=== PATIENT | female | born 2000 | race Caucasian/White ===

== ENCOUNTER 2018-06-16 04:14 | Observation (INO) ==
--- NOTE | 2018-06-16 04:45 | PROVIDER DOCUMENTATION ---
HPI-Female /OB/Breast - General Chief Complaint: Flank Pain Stated Complaint: FLANK PAIN Time Seen by Provider: 06/16/18 04:45 Source: reports: patient Allergies/Adverse Reactions: Patient Allergies Allergy/AdvReac Type Severity Reaction Status Date / Time No Known Allergies Allergy Verified 06/16/18 04:43 Home Medications: Home Medication List Medication Instructions Recorded Confirmed Last Taken Type NK [No Home Medications] 06/16/18 06/16/18 Unknown History - History of Present Illness-Female /OB Nature of Presenting Problem: Patient is a 17 year old white female with history of nephrolithiasis, S/P replacement of obstructed right ureteral stent in [place], [place] 2 days ago who presents with worsening 6/10 sharp right flank and right abdomen pain for past 2 days. Patient also noted to have fever of 101.7 at 0330 today. Patient is currently traveling to [facility] , with her 4 month old baby and her . Location of complaint: reports: right flank, other (right abdomen) Radiation: reports: none Quality of Pain: reports: sharp Onset/Duration: reports: gradual, 2 days ago Timing: reports: still present Vaginal Bleeding Amount: None Leakage of Fluid: none Associated Symptoms: reports: fever/chills. denies: constipation, diarrhea Similar Symptoms Previously?: Yes Recently seen or treated by another doctor?: Yes (urologist in [place], [place] on 06/13/18) Review of Systems - Adult - REVIEW OF SYSTEMS - ADULT Constitutional: reports: chills, fever Eyes: reports: no symptoms reported Ears, Nose, Mouth & Throat: reports: no symptoms reported Cardiovascular: reports: no symptoms reported Respiratory: reports: no symptoms reported. denies: cough, shortness of breath Gastrointestinal: reports: see HPI, abdominal pain, nausea Genitourinary: reports: see HPI, flank pain (right), hematuria. denies: dysuria Musculoskeletal: reports: back pain Integumentary: reports: no symptoms reported Neurological: reports: no symptoms reported Psychiatric: reports: no symptoms reported Endocrine: reports: no symptoms reported Hematologic/Lymphatic: reports: no symptoms reported Past History - Adult - PAST MEDICAL HISTORY-ADULT Review of Records: reports: Old Records Reviewed, Nursing Assessment Review, Medications Reviewed, Social history reviewed & non-contributory. Major Childhood Illnesses: reports: denies history Cardiovascular: reports: denies history Respiratory: reports: denies history Gastrointestinal: reports: denies history Obstetrical/Gynecological: reports: other (, 4 months ago) Genitourinary: reports: kidney stones Musculoskeletal: reports: denies history Neurological: reports: denies history Psychiatric: reports: denies history Endocrine/Immune: reports: denies history - PRIOR SURGERIES/PROCEDURES Surgical/Procedure History: reports: other (right ureteral stents) - FAMILY HISTORY Family History: reviewed, not pertinent Physical Exam-General - PHYSICAL EXAM-ADULT Initial Vital Signs Reviewed: Yes - CONSTITUTIONAL General Appearance: alert, no apparent distress, other (moderate discomfort) - EYES Eyes: pink conjunctivae - HEAD, EARS, NOSE, MOUTH & THROAT HENMT: normocephalic/atraumatic - NECK Neck: full range of motion, supple - RESPIRATORY Respiratory: lungs clear - CARDIOVASCULAR Cardiovascular: regular rate, rhythm - GASTROINTESTINAL (ABDOMEN) Abdominal Exam: normal bowel sounds, soft, no organomegaly, no pulsatile mass, other (right sided tenderness) - LYMPHATIC Lymphatic: no adenopathy - MUSCULOSKELETAL Back Exam: normal inspection, CVA tenderness (right CVA tenderness) Extremity: normal range of motion, non-tender Peripheral Pulses: radial (R): 2+, radial (L): 2+ - SKIN Integumentary: normal color, normal turgor - NEUROLOGIC Neurologic: grossly normal - PSYCHIATRIC Psych/Mental Status: normal thought content, normal thought process, oriented x 3, anxious Progress - PLAN OF CARE/RESULTS Progress/Plan/Lab Results: Vital Signs - 8 hr 06/16/18 04:37 06/16/18 10:14 06/16/18 11:04 Temperature 98.9 F 97.5 F L 99.3 F Pulse Rate 101 H 58 L Respiratory Rate 18 18 Blood Pressure 121/62 118/93 O2 Sat by Pulse Oximetry 97 99 Bedside Urine ED: Urine Bedside Start: 06/16/18 04:46 Freq: ORDERED Status: Active Protocol: Activity Type Activity Date Activity User E-Sign Co-Sign Detail Recorded Client Recorded Date Recorded By Document 06/16/18 04:54 [id number] 06/16/18 04:54 [id number] 06/16/18 04:54 Point of Care [Bedside Point of Care] -Lot # [id number] - Results Negative -Control Line Visible? Yes Laboratory Results - last 24 hr 06/16/18 06/16/18 06/16/18 04:57 06:00 06:00 WBC 13.24 H RBC 4.23 Hgb 11.4 L Hct 34.3 L MCV 81.1 MCH 27.0 MCHC 33.2 RDW Std Deviation 12.6 Plt Count 338 MPV 9.2 Immature Gran % (Auto) 0.2 Neut % (Auto) 81.3 H Lymph % (Auto) 8.4 L Rawlins % (Auto) 9.4 H Eos % (Auto) 0.5 Baso % (Auto) 0.2 Immature Gran # (Auto) 0.02 Neut # (Auto) 10.78 H Lymph # (Auto) 1.11 L Rawlins # (Auto) 1.25 H Eos # (Auto) 0.06 Baso # (Auto) 0.02 Sodium 139 Potassium 3.8 Chloride 105 Carbon Dioxide 22 L Anion Gap 12 BUN 8 Creatinine 0.5 Estimated GFR/1.73 m2 > 60 BUN/Creatinine Ratio 16 Glucose 118 H Calculated Osmolality 277 Calcium 8.9 Total Bilirubin 0.50 AST 12 ALT 12 Alkaline Phosphatase 76 Total Protein 7.2 Albumin 3.7 Globulin 4.0 Albumin/Globulin Ratio 1.0 Urine Source CLEAN CATCH Urine Color YELLOW Urine Clarity CLEAR Urine pH 7.0 Ur Specific [place]cott 1.000 Urine Protein 1+(30 mg/dL) A Urine Ketones NEGATIVE Urine Blood 4+ Urine Nitrite NEGATIVE Urine Bilirubin NEGATIVE Urine Urobilinogen NORMAL Urine Microscopic RBC 10-20 A Urine WBC 2+ A Urine Microscopic WBC 20-40 A Ur Epithelial Cells <10 Urine Bacteria 1+ Urine Glucose NEGATIVE Orders Category Date Time Status Saline Loc NOW Care 06/16/18 05:40 Active [ED: Urine Bedside] ORDERED Care 06/16/18 04:[address] RENAL STONE SEARCH [CT] Stat Exams 06/16/18 06:35 Completed BLOOD CULTURE [BLDCUL] Stat Lab 06/16/18 06:53 Ordered CBC WITH ELECTRONIC DIFF [HEME] Stat Lab 06/16/18 06:00 Completed CMP [COMPREHENSIVE METABOLIC PANEL] [CHEM] Stat Lab 06/16/18 06:[address] W/POSS RFLX CULT [URINALYSIS] Stat Lab 06/16/18 04:57 Completed URINE CULTURE [RM] Routine Lab 06/16/18 07:26 Ordered CefTRIAXONE [Rocephin] 1 gm Med 06/16/18 06:37 Discontinued 0.9% Sodium Chloride Inj [Ns] 50 ml IV NOW Ketorolac [Toradol] Med 06/16/18 05:40 Discontinued 30 mg IV NOW ONE Transfer/Admit Order [TRANSFER] Routine Transfer 06/16/18 11:07 Ordered Result Diagrams: 06/16/18 06:00 06/16/18 06:00 - CONSULTS/PCP/HOSPITALIST Notification #1 *Consult/PCP/Hospitalist*: Dr López Time Discussed: 09:30 Consult Disposition: other (please ask patient where she would like the procedure performed, at [facility] or in [place]) #2 Consult: Dr López Time Discussed: 09:45 Consult Disposition: other (Please contact hospitalist for patient transfer) #3 Consult: Dr López Reason/Comments: 10:22 Consult Disposition: other (Waiting for patient transfer) - CHANGE OF SHIFT REPORT (ED Provider) Report Given and Care Transferred to:: Dr. Berger Time of Transfer: 07:00 Items Pending: CT/MRI Results (CT of abdomen/pelvis pending) Departure - Departure Date of Disposition Decision: 06/16/18 Time of Disposition Decision: 11:12 DIAGNOSIS: Right flank pain Disposition: ADMITTED INPATIENT 09 Certified Medical Emergency: Emergent Condition: Stable Referrals and Follow-Ups: None,PCP [Primary Care Provider] - - Critical Care Note This patient required my direct & personal management of CC.: No Attestation - Physician/ CARIN Attestation Patient care was provided by Advanced Practice Provider:: No The physician spent face to face time with patient:: Yes Advanced Practice Provider documentation review:: Supervising physician onsite and consulted in the evaluation and care of this patient. The physician did have a face to face encounter with the patient.
[2018-06-16] MEDS ORDERED: TORADOL IV ONE (05:40)
[2018-06-16 06:09] LABS: BASO# 0.02 X1000 (0.0-0.2); BASO% 0.2 % (0.0-0.8); EOS# 0.06 X1000 (0.0-0.7); EOS% 0.5 % (0.0-10.0); HEMATOCRIT 34.3 % (37.0-47.0); HEMOGLOBIN 11.4 g/dL (12.0-16.0); IMM GRAN# 0.02 X1000 (0.0-0.04); IMM GRAN% 0.2 % (0.0-0.5); LYMPH# 1.11 X1000 (1.2-3.4); LYMPH% 8.4 % (20.5-51.1); MCHC 33.2 g/dL (33-37); MCV 81.1 FL (81-99); MONO# 1.25 X1000 (0.11-0.59); MONO% 9.4 % (1.7-9.3); MPV 9.2 FL (7.4-10.4); NEUT# 10.78 X1000 (1.4-6.5); NEUT% 81.3 % (42.2-75.2); PLT 338 X1000 (130-400); RBC 4.23 XMIL (4.2-5.4); RDW 12.6 % (11.5-14.5); WBC 13.24 X1000 (4.8-10.8)
[2018-06-16] MEDS ORDERED: ROCEPHIN 1 GM in NS 50 ML IV ONE (06:37)
[2018-06-16 06:43] LABS: BILIRUBIN URINE NEGATIVE (NEGATIVE); BLOOD URINE 4+ (NEGATIVE); CLARITY CLEAR (CLEAR); COLOR YELLOW; GLUCOSE URINE NEGATIVE (NEGATIVE); KETONE URINE NEGATIVE (NEGATIVE); LEUKOCYTES URINE 2+ (NEGATIVE); NITRITE URINE NEGATIVE (NEGATIVE); PROTEIN URINE 1+(30 mg/dL) mg/dL (NEGATIVE); UROBILINOGEN URINE NORMAL
[2018-06-16 06:48] LABS: AGAP 12; ALBUMIN 3.7 g/dL (3.5-5.0); ALKALINE PHOSPHATASE 76 U/L (32-104); BUN 8 mg/dL (8-22); CALCIUM 8.9 mg/dL (8.8-10.2); CHLORIDE 105 mmol/L (98-107); COSMO 277; CREATININE 0.5 mg/dL (0.5-0.9); ESTIMATED GFR > 60; GLUCOSE 118 mg/dL (70-104); GOT 12 U/L (10-30); GPT 12 U/L (10-36); POTASSIUM 3.8 mmol/L (3.5-5.1); SODIUM 139 mmol/L (136-145); TCO2 22 mmol/L (25-35); TOTAL PROTEIN 7.2 g/dL (6.3-8.3)
[2018-06-16 07:23] LABS: URINE WBC 20-40 /HPF (<10)
[2018-06-16 07:24] LABS: URINE BACTERIA 1+ /HFP; URINE EPITHELIAL CELLS <10 /HPF (<10)
[2018-06-16 07:26] LABS: URINE SOURCE CLEAN CATCH
--- NOTE | 2018-06-16 08:04 | Diag Imaging Result Doc PS360 ---
CT RENAL STONE SEARCH - 06/16/2018 INDICATION: right flank pain COMPARISON: None FINDINGS: The lung bases are clear and the heart size is normal. There is a right nephroureteral stent in good position. There is a large right mid-distal ureter stone measuring 6.5 mm. There is moderate right hydronephrosis. There are numerous stones in the right kidney that appears mainly of stone fragments. No left-sided stones or obstruction. No bowel obstruction or inflammation. Normal appendix. Urinary bladder is normal. Uterus and rectum are normal. Bones are intact. IMPRESSION: Several right renal stones. Large right mid-distal ureter stone. Moderate right hydronephrosis, in spite of a right nephroureteral stent in good position. The reason is uncertain. This exam was performed using automated exposure control, adjustment of mA or kV according to patient size, and/or use of iterative reconstruction technique Electronically signed by Erasto Tatum 06/16/2018 8:01 AM
[2018-06-16] MEDS ORDERED: ZOFRAN IV ONE (11:40)
[2018-06-16] MEDS ORDERED: NS 1,000 ML IV ONE (13:08)
[2018-06-16] MEDS ORDERED: TRANSDERM-SCOP ONE (13:54)
[2018-06-16] MEDS ORDERED: DIPRIVAN 1% ONE (13:56)
[2018-06-16] MEDS ORDERED: XYLOCAINE-MPF 2% ONE (13:56)
[2018-06-16] MEDS ORDERED: FENTANYL ONE (14:09)
[2018-06-16] MEDS ORDERED: DECADRON ONE (14:10)
[2018-06-16] MEDS ORDERED: ZOFRAN ONE (14:10)
[2018-06-16] MEDS ORDERED: ROBINUL ONE (14:22)
[2018-06-16] MEDS ORDERED: VANCOMYCIN IV PER PHARMACY MISC SCH (14:30)
[2018-06-16] MEDS: ZOSYN 3.375 GM in NS 50 ML IV SCH ×2 (16:11→21:31)
--- NOTE | 2018-06-16 17:07 | OPERATIVE NOTE ---
PROCEDURE DATE: 06/16/2018 SURGEON: Josiah López MD. PREOPERATIVE DIAGNOSIS: Right midureteral stones with right renal stones, right hydronephrosis, right flank pain, indwelling right double-J stent. POSTOPERATIVE DIAGNOSIS: Right midureteral stones with right renal stones, right hydronephrosis, right flank pain, indwelling right double-J stent. PROCEDURE PERFORMED: Cystoscopic exam, remove right double-J stent. Right ureteroscopy, laser lithotripsy of midureteral stones, basket extraction of fragments. ANESTHESIA: General via laryngeal mask. FINDINGS: Cystoscopic exam: Urethra-greater than 21 Cambodian without stricture. Bladder-normal ureteral orifices bilaterally with double-J stent in place on the right. No papillary lesions. No trabeculations. No diverticula. After removal of the double-J stent, right ureteroscopy reveals a dilated ureter from the bladder all the way up to the midureter where there were several impacted stones, one 7 mm stone with several fragments right behind it. exam: Normal external female. Atrophic mucosa. Capacious vaginal cavity secondary to recent childbirth as well as an enlarged cervix secondary to recent childbirth. INDICATION FOR PROCEDURE: A 17-year-old female was noted to have a large right renal stone about 5 months into her . She had a double-J stent placed and had several changes and after normal vaginal delivery 2 months ago she had shockwave lithotripsy. She was doing well until earlier today when she developed severe right flank pain and fever. Evaluation revealed stone fragments in the kidney, a dilated renal collecting system and stones in the right midureter, the largest about 7 mm. This was right beside the double-J stent. DESCRIPTION OF PROCEDURE: After informed consent was obtained from the patient and her receiving IV antibiotics, she was taken to the main OR cystoscopy room, placed in supine position. General anesthesia via laryngeal mask was achieved. She was then placed in a low lithotomy position and prepped and draped in the usual sterile fashion for cystoscopic exam. A 21-Cambodian cystoscope was passed through the patient's urethra and in the bladder findings noted above. The grasping forceps were placed and the double-J stent was removed. A 0.035 ZIPwire was passed through the cystoscope, engaged right ureteral orifice advanced up into the kidney. The cystoscope was removed and the ZIPwire was moved to the side to act as a safety wire. A 7-Cambodian Storz semi- rigid ureteroscope was advanced through the patient's urethra and into the ureter and advanced up to the impacted stones. A 365 micron laser fiber was placed. The laser was set at 8 hertz and 8 singletary and the stone and stone fragments were further fragmented. A total of 330 joules was used to fragment the stones. A 4 wire Nitinol basket was placed and multiple passes were made to remove stone fragments. These were sent to Pathology for analysis. The ureteroscope was advanced to the right ureteropelvic junction. No further stones or fragments were visualized. There was significant bullous edema from the indwelling double-J stent but the channel was wide open. The ureteroscope was removed. The cystoscope was returned to the bladder to fully inspect the bladder. The bladder was drained. Cystoscope was removed. exam performed she tolerated the procedure well. Estimated blood loss was 0. She was taken to recovery room in good condition. cc: Josiah López MD
--- NOTE | 2018-06-16 17:17 | CONSULTATION ---
DATE OF CONSULTATION: 06/16/2018 ATTENDING AND REFERRING PHYSICIAN: Hospitalist. HISTORY OF PRESENT ILLNESS: This 17-year-old female developed right flank pain. Evaluation revealed right renal stones and a right midureteral stone with an indwelling right double-J stent. The patient states that while she was she developed right flank pain and evaluation revealed a large right stone. A double-J stent was placed. She delivered approximately 2 months ago and then had shockwave lithotripsy. The patient states that she was doing well until recently when she developed a severe right flank pain and had a fever to 101. She was seen in the emergency room and admitted for treatment. The patient states that this is her 1st episode of stones. She denies problems with urinary tract infections. She states this was her 1st and delivery. PAST MEDICAL HISTORY: Negative. No current medications. PAST SURGICAL HISTORY: PE tubes placed many years ago, spontaneous vaginal delivery, several stent changes while , right extracorporeal shockwave lithotripsy. SOCIAL HISTORY: No tobacco or alcohol use. ALLERGIES: No known drug allergies. REVIEW OF SYSTEMS: Usually in good health. She has no problems with diabetes, hypertension, stroke, seizures, pulmonary or bowel problems. PHYSICAL EXAM: General: A normally well-nourished, age apparent white female, oriented in all ways and cooperative. HEENT: Normal for age. Lungs: Clear. Cardiovascular: Regular rate and rhythm. Abdomen: Flat, soft. Direct tenderness in the right side and right flank but no guarding or rebound. : Deferred until surgery. Extremities: No clubbing, cyanosis, or edema. Neuro: No focal deficits. LABORATORY EVALUATION: Has a white count of 13.2, hemoglobin 11.4, hematocrit of 34.3, platelets are 338,000. Serum electrolytes are normal. BUN 8, creatinine 0.5, serum calcium is 8.9. Urinalysis had 10 to 20 red cells per high-powered field, 20 to 40 white cells and 1+ bacteria. CT renal stone search revealed some right renal stone fragments as well as a 6 mm stone in the right midureter with the indwelling right double-J stent. IMPRESSION: 1. Right renal stones that are probably fragments from her recent shockwave lithotripsy. 2. Right flank pain with fever. 3. A right midureteral stone with indwelling double-J stent. RECOMMEND: 1. Discussed with the patient she may have a urinary tract infection and is on antibiotics with cultures pending. 2. She does have a midureteral stone with dilation of the urinary system. Recommend cystoscopic exam. Remove the right double-J stent. Right ureteroscopy, laser lithotripsy of the stone with basket extraction of any fragments. Will replace the double-J stent if needed. If the channel appears open will leave the stent out. The planned procedure, benefits versus risks, and possible complications including but not limited to, bleeding, further infection, not being able to remove the stone, need for further stone surgery, need to replace the double-J stent if it is not placed after the surgery, need for further surgery was discussed. She seems to understand and desires to proceed. cc: Josiah López MD
[2018-06-16] MEDS: VANCOMYCIN 1.5 GM in NS 250 ML IV SCH (17:58)
--- NOTE | 2018-06-16 18:32 | HISTORY AND PHYSICAL ---
CHIEF COMPLAINT: Fever and flank pain. HISTORY OF PRESENT ILLNESS: Patient is a very pleasant 17-year-old female who presented to the ER with fever, chills and sharp right-sided flank pain. She states a few days ago she was in [place], [place] and had a stent placed. States she has a history of kidney stones and had to have a stent placed in her right ureter secondary to obstruction. States she was currently traveling to [place], [place] with her 4-month-old baby and her . She started having fevers and chills and they stopped in [place] at the ER. ALLERGIES: No known drug allergies. MEDICATIONS: No current medications. REVIEW OF SYSTEMS: Positive fevers, chills. Denies headaches, blurred vision, change in vision, denies any cough, congestion, upper respiratory symptoms, denies any fever prior to today. Denies constipation, melena, hematochezia. PAST MEDICAL HISTORY: Recurrent renal stones, history of hydronephrosis secondary to renal stone, she has had a recent right ureteral stent secondary to hydronephrosis due to renal stone. FAMILY HISTORY: Noncontributory. SOCIAL HISTORY: Does not smoke or drink. She is , has 1 child that is 4 months old. PHYSICAL: Current temperature 98.9 degree, pulse 101, respiratory 18, BP 121/62.General: Patient is awake, very pleasant to talk with, she is somewhat ill appearing. She is noted to have chills, shaking. She is wrapped up in several blankets. HEENT: Normocephalic. Neck: Supple. CV: Regular rate. Chest: Clear. Abdomen: Soft, positive tenderness over the right flank. Extremities: Moves all extremities. ASSESSMENT: 1. Fever. 2. Recent right ureteral stone . 3. Recurrent kidney stone. PLAN: We will admit patient the hospital, transfer her to [facility] have Urology evaluate. Certainly concerned that her fever could be from an infected stent versus retained stone that is infected. Certainly may require intervention. We will place her on antibiotics, pain control and will follow. cc: Vicente Gates MD
[2018-06-16] MEDS: PERIDEX MT SCH (21:31)
[2018-06-17] MEDS: ZOSYN 3.375 GM in NS 50 ML IV SCH ×2 (02:30→09:12)
[2018-06-17] MEDS: VANCOMYCIN 1.5 GM in NS 250 ML IV SCH (04:02)
[2018-06-17 06:49] LABS: BASO# 0.01 X1000 (0.0-0.2); BASO% 0.1 % (0.0-0.8); EOS# 0.02 X1000 (0.0-0.7); EOS% 0.2 % (0.0-10.0); HEMOGLOBIN 10.8 g/dL (12.0-16.0); IMM GRAN# 0.03 X1000 (0.0-0.04); IMM GRAN% 0.3 % (0.0-0.5); LYMPH# 1.54 X1000 (1.2-3.4); MCHC 32.7 g/dL (33-37); MCV 82.5 FL (81-99); MONO# 1.11 X1000 (0.11-0.59); MONO% 10.8 % (1.7-9.3); MPV 9.3 FL (7.4-10.4); NEUT# 7.55 X1000 (1.4-6.5); NEUT% 73.6 % (42.2-75.2); PLT 328 X1000 (130-400); RDW 12.6 % (11.5-14.5); WBC 10.26 X1000 (4.8-10.8)
[2018-06-17] MEDS ORDERED: ROCEPHIN 1 GM in NS 50 ML IV SCH (07:00)
[2018-06-17 07:09] LABS: AGAP 10; BUN 10 mg/dL (8-22); CALCIUM 8.8 mg/dL (8.8-10.2); CHLORIDE 107 mmol/L (98-107); COSMO 281; CREATININE 0.6 mg/dL (0.5-0.9); ESTIMATED GFR > 60; GLUCOSE 112 mg/dL (70-104); SODIUM 141 mmol/L (136-145); TCO2 24 mmol/L (25-35)
[2018-06-17 07:41] VITALS: BP 106/56
[2018-06-17] MEDS: PERIDEX MT SCH (09:13)
[2018-06-17] MEDS ORDERED: FLU VACCINE IM ONE (10:06)
--- NOTE | 2018-06-17 11:20 | DISCHARGE SUMMARY ---
ADMISSION DATE: 06/16/2018 DISCHARGE DATE: 06/17/2018 ADMISSION DIAGNOSES: 1. Right ureteral stone with early sepsis. 2. Asymptomatic bradycardia. DISCHARGE DIAGNOSES: 1. Right ureteral stone with early sepsis. 2. Asymptomatic bradycardia. CONSULTING PHYSICIANS: Dr. Josiah López. DIAGNOSTIC PROCEDURES AND FINDINGS: Renal CT done 06/16/2018 showed several right renal stones, large right mid distal ureter stone, moderate right hydronephrosis in spite of nephroureteral stent in good position for reasons uncertain. OPERATIVE PROCEDURES: Cystoscopic exam: Remove right JJ stent, right ureteroscopy, laser lithotripsy of many ureteral stones, basket extraction of fragments done by Dr. López on 06/16/2018. HOSPITAL COURSE: Ms. Rose is a 17-year-old, female, with a history of multiple stones in the past who is actually on her way to [place] from [place]. She has a history of kidney stones and had a stent placed a few days ago in [place], [place]. She started having fever and chills on the way down and stopped at [facility]. She was noted to have a right ureter stone on CT. She had fevers and elevated white count so we admitted her. She was seen by Dr. López who performed stent extraction as well as lithotripsy of the stone with good results. This morning, she has no complaints. She is actually feeling much better. Dr. López has seen her and felt that she is stable for discharge. We do not yet have urine cultures, but she will follow up with those when she gets to her final destination and will have her PCP follow up as well. DISCHARGE MEDICATIONS: Levaquin 750 mg p.o. daily x10 days. DISCHARGE LAB DATA: WBC 10.26, hemoglobin 10.8, hematocrit 33, platelet count 328,000. Sodium 141, potassium 4, chloride 107, CO2 24. Anion gap 10. BUN 10, creatinine 0.6. Glucose 112. Urine culture is pending. DISCHARGE PHYSICAL EXAM: GENERAL: This is a well-developed, well-nourished, 17-year-old female lying in a hospital bed in no acute distress. NEUROLOGIC: Awake, alert and oriented. Follows commands. No Fishman catheter. HEENT: Head: Normocephalic and atraumatic. Eyes: Pupils are equal, round and reactive to light. ENT: Oral mucosa is moist. NECK: Trachea is midline. No JVD. CHEST: Clear to auscultation. CARDIOVASCULAR: Regular rhythm, slightly bradycardic. S1, S2 as noted. No murmur. GASTROINTESTINAL: Soft, nontender, nondistended. Bowel sounds positive. EXTREMITIES: No edema, clubbing or cyanosis. Pulses 2+ bilaterally. DISCHARGE ACTIVITY: Resume activity as tolerated. DISCHARGE DIET: Regular. DISPOSITION AND OTHER DISCHARGE INSTRUCTIONS: 1. The patient is discharged home to self care. 2. She is to continue all antibiotics until completed. 3. She is to follow up with doctor of her choosing in the next 7-10 days and have that doctor follow up with our facility for urine culture results. 4. She is to return to the ER or call 911 for any worsening complaints or concerns. All questions have been answered. DISCHARGE TIME: Greater than 35 minutes. Dictated by MELANIA Mary for Jesus Jackson MD cc: MELANIA Mary MD Agree with above. the following is my own face to face assessment and exam. Patient admitted with UTI and sepsis associated with obstructing ureteral stone. urology removed stone and placed stent with subsuquent resolution of patient's symptoms. on discharge exam abdomen was soft, nontender, nondistended. bowel sounds postive. no CVA tenderness. discharged home on a course of levaquin. GUNNAR
--- NOTE | 2018-06-18 08:42 | Diag Imaging Result Doc PS360 ---
EXAM: FLUROSCOPY CYSTO HISTORY: RT STONE REMOVAL TECHNIQUE: 11 films submitted COMPARISON: None. FINDINGS: The first film shows a right-sided ureteral stent. This was removed. A wire was then placed in the right ureter. There are calcifications overlying the lower pole the right kidney. IMPRESSION: 1.Right ureteral stent removed 2.Right lower pole renal stones Electronically signed by Rick Rankin 06/18/2018 8:40 AM
== END 2018-06-17 10:59 | disposition home or self-care (01) ==
LOC: P.ED 04:14 → 4N 04:14 → SUATTDRO 12:08 → 4N 14:17
PROVIDERS: ATTEND Internal Medicine
CPT/HCPCS: 74176; 76000; 80048; 80053; 81001; 82360; 83735; 85025; 87040; 87088; 88300; 90686; 94799; A9270; J0696; J1100; J1885; J2405; J2543; J3010; J3370; J7030; J7050